=== PATIENT | female | born 1980 | race Caucasian/White ===

== ENCOUNTER → 2018-05-21 | Outpatient (CLI) | payer BC ==
[~2018-05-21] MED LIST: ALBU90OI; ALBU90OI6 INH; AMOX500 PO; AZIT250 PO; CELE200; CYCL10 PO; DIAZ5 PO; DIPH50 PO; EPIN.3I IM; FAMO20 PO; FOLI1 PO; GUAI1200ER PO; HYDACE5 PO; HYDACE5325 PO; HYDGUAL120 PO; LEVSOD100 PO; LEVSOD88 PO; METCAR500; METPRE4DP PO; MULTI VITS; MULTIVITAMIN PO; NAPR500 PO; NITR100CA PO; Norco 5-325 Ta1 EACH PO; PROM25 PO; Pepcid20 MG PO; Robaxin-750750 MG PO; SULTRIDS PO; [UNRECOGNIZED DRUG - REMARK]
[2018-05-21 12:15] LABS: BASOPHILS ABSOLUTE AUTO 0.04 K/mm3 (0.00-0.23); BASOPHILS PERCENT AUTO 1 % (0-2); EOSINOPHILS ABSOLUTE AUTO 0.14 K/mm3 (0.00-0.68); EOSINOPHILS PERCENT AUTO 2 % (0-6); Hematocrit 41.5 % (33.0-51.0); IMMATURE GRAN ABSOLUTE AUTO 0.03 K/mm3 (0.00-0.10); IMMATURE GRAN PERCENT AUTO 0 % (0-1); LYMPHOCYTES ABSOLUTE AUTO 2.13 K/mm3 (0.84-5.20); LYMPHOCYTES PERCENT AUTO 27 % (21-46); MONOCYTES PERCENT AUTO 5 % (4-13); Mean Corpuscular HGB 30.4 pg (26.0-34.0); Mean Corpuscular HGB Conc 33.7 g/dL (31.5-36.5); Mean Corpuscular Volume 90 fL (80-100); Mean Platelet Volume 9.6 fL (9.1-12.4); NEUTROPHILS ABSOLUTE AUTO 5.27 K/mm3 (1.96-9.15); NEUTROPHILS PERCENT AUTO 66 % (41-73); Platelet Count 270 K/mm3 (150-400); RDW Coefficient Variation 13.1 % (11.7-14.2); RDW Standard Deviation 42.8 fL (35.1-46.3); White Blood Cell Count 8.01 K/mm3 (4.00-11.30)
[2018-05-21 12:24] LABS: Alanine Aminotransfer (ALT/SGP 23 U/L (12-78); Albumin, Blood 3.4 g/dL (3.4-5.0); Albumin/Globulin Ratio 0.7 (0.8-1.8); Alk Phos 54 U/L (40-126); Anion Gap 10 mmol/L (6-16); Aspartate Aminotrans (AST/SGOT 11 U/L (12-37); Bilirubin, Total 0.2 mg/dL (0.1-1.0); Blood Urea Nitrogen 15 mg/dL (8-24); Bun/Creatinine Ratio 23.8 (12.0-20.0); CO2, Blood 27 mmol/L (21-32); Calcium, Blood 8.9 mg/dL (8.5-10.1); Chloride, Blood 103 mmol/L (98-108); Creatinine, Blood 0.63 mg/dL (0.40-1.00); Globulin, Blood 4.8 g/dL (2.2-4.0); Glomerular Filtration Rate >60 (60-); Glucose, Blood 158 mg/dL (70-99); Potassium, Blood 3.9 mmol/L (3.5-5.5); Sodium, Blood 140 mmol/L (136-145); Total Protein, Blood 8.2 g/dL (6.4-8.2)
== END ==
LOC: LAB SHORT 12:11 → LAB EV 12:11
PROVIDERS: Emergency Medicine
DX: R51 Headache (principal)
CPT/HCPCS: 80053; 85025

== ENCOUNTER 2020-06-18 19:45 | Emergency (ER) | payer BC ==
[~2020-06-18] VITALS: Ht 167.6 cm; Wt 155.6 kg
[2020-06-18] MEDS ORDERED: SERT100 PO (20:53)
[2020-06-18] MEDS ORDERED: METF500 PO (20:54)
[2020-06-18] MEDS ORDERED: OFLOXACIN5 M1 BOTHEARS (23:16)
== END 2020-06-18 23:30 | disposition home or self-care (01) ==
LOC: ER 19:45
DX: H60.91 Unspecified otitis externa, right ear (principal); E11.9 Type 2 diabetes mellitus without complications; J45.901 Unspecified asthma with (acute) exacerbation; Z79.899 Other long term (current) drug therapy; Z87.891 Personal history of nicotine dependence; Z79.84 Long term (current) use of oral hypoglycemic drugs
CPT/HCPCS: 99282; A9270

== ENCOUNTER 2021-04-19 11:35 | Emergency (ER) | payer OTHER, BC ==
[~2021-04-19] VITALS: Ht 167.6 cm; Wt 155.6 kg
[~2021-04-19 11:35] MED LIST changes: +METF500 PO; +OFLOXACIN5 M1 BOTHEARS; +SERT100 PO
[2021-04-19] MEDS ORDERED: DIAZ2 PO (14:03)
[2021-04-19] MEDS ORDERED: Robaxin750 MG PO (14:03)
[2021-04-19] MEDS ORDERED: IBUP800 PO (14:03)
[2021-04-19] MEDS ORDERED: HYDR1TAB94 PO (14:03)
== END 2021-04-19 14:23 | disposition home or self-care (01) ==
LOC: ER 11:35
DX: M25.551 Pain in right hip (principal); R10.31 Right lower quadrant pain; R10.32 Left lower quadrant pain; E03.9 Hypothyroidism, unspecified; Z87.891 Personal history of nicotine dependence; Z79.84 Long term (current) use of oral hypoglycemic drugs; Z79.899 Other long term (current) drug therapy; Z88.8 Allergy status to other drugs, medicaments and biological substances
CPT/HCPCS: 72100; 72170; 96372; 99283-25; A9270; J1885

== ENCOUNTER 2022-06-18 07:39 | Emergency (ER) | payer BC ==
[~2022-06-18] VITALS: Ht 167.6 cm; Wt 152.2 kg
[~2022-06-18 07:39] MED LIST changes: +DIAZ2 PO; +HYDR1TAB94 PO; +IBUP800 PO; +Robaxin750 MG PO
[2022-06-18 09:07] VITALS: BP 127/85
[2022-06-18] MEDS ORDERED: DICY20 PO (09:44)
[2022-06-18] MEDS ORDERED: ONDA4ODT MM (09:44)
== END 2022-06-18 10:10 | disposition home or self-care (01) ==
LOC: ER 07:39
DX: A08.4 Viral intestinal infection, unspecified (principal); Z88.1 Allergy status to other antibiotic agents; Z79.899 Other long term (current) drug therapy; Z79.84 Long term (current) use of oral hypoglycemic drugs; J45.909 Unspecified asthma, uncomplicated; E11.9 Type 2 diabetes mellitus without complications; Z87.891 Personal history of nicotine dependence
CPT/HCPCS: 99283; A9270

== ENCOUNTER 2022-07-11 18:37 | Emergency (ER) | payer BC ==
[~2022-07-11] VITALS: Ht 167.6 cm; Wt 149.7 kg
[~2022-07-11 18:37] MED LIST changes: +DICY20 PO; +ONDA4ODT MM
[2022-07-11 19:32] LABS: BASOPHILS ABSOLUTE AUTO 0.02 K/mm3 (0.00-0.23); BASOPHILS PERCENT AUTO 0 % (0-2); EOSINOPHILS ABSOLUTE AUTO 0.36 K/mm3 (0.00-0.68); EOSINOPHILS PERCENT AUTO 3 % (0-6); Hematocrit 42.7 % (33.0-51.0); Hemoglobin 14.8 g/dL (11.5-16.0); IMMATURE GRAN ABSOLUTE AUTO 0.04 K/mm3 (0.00-0.10); IMMATURE GRAN PERCENT AUTO 0 % (0-1); LYMPHOCYTES ABSOLUTE AUTO 1.21 K/mm3 (0.84-5.20); LYMPHOCYTES PERCENT AUTO 10 % (21-46); MONOCYTES PERCENT AUTO 4 % (4-13); Mean Corpuscular HGB 30.6 pg (26.0-34.0); Mean Corpuscular HGB Conc 34.7 g/dL (31.5-36.5); Mean Corpuscular Volume 88 fL (80-100); Mean Platelet Volume 9.3 fL (9.1-12.4); NEUTROPHILS ABSOLUTE AUTO 9.65 K/mm3 (1.96-9.15); NEUTROPHILS PERCENT AUTO 82 % (41-73); Platelet Count 271 K/mm3 (150-400); RDW Coefficient Variation 12.7 % (11.7-14.2); Red Blood Cell Count 4.84 M/mm3 (3.80-5.20); White Blood Cell Count 11.78 K/mm3 (4.00-11.30)
[2022-07-11 20:00] LABS: Albumin, Blood 3.3 g/dL (3.4-5.0); Albumin/Globulin Ratio 0.8 (0.8-1.8); Bilirubin, Total 0.5 mg/dL (0.1-1.0); Bun/Creatinine Ratio 27.8 (12.0-20.0); Creatinine, Blood 0.47 mg/dL (0.40-1.00); Globulin, Blood 4.4 g/dL (2.2-4.0); Potassium, Blood 3.8 mmol/L (3.5-5.5); Total Protein, Blood 7.7 g/dL (6.4-8.2)
[2022-07-12] MEDS ORDERED: PROM25 PO (00:14)
[2022-07-12 00:25] VITALS: BP 161/103
== END 2022-07-12 00:25 | disposition home or self-care (01) ==
LOC: ER 18:37
PROVIDERS: Student in an Organized Health Care Education/Training Program
DX: K52.9 Noninfective gastroenteritis and colitis, unspecified (principal); Z91.048 Other nonmedicinal substance allergy status; Z88.1 Allergy status to other antibiotic agents; Z79.899 Other long term (current) drug therapy; Z79.84 Long term (current) use of oral hypoglycemic drugs; J45.909 Unspecified asthma, uncomplicated; E11.9 Type 2 diabetes mellitus without complications; Z87.891 Personal history of nicotine dependence
CPT/HCPCS: 80053; 83690; 84703; 85025; 96361; 96374; 96375; 99284-25; A9270; J1200; J2405; J2765; J7030